=== PATIENT | male | born 1955 | race Hispanic/Latino ===

== ENCOUNTER 2022-05-27 12:44 | Emergency (ER) | payer OTHER ==
--- NOTE | 2022-05-27 13:28 | ER ---
Nurse's Notes [facility] Name: Cristi Reed Age: 66 yrs Sex: Male : 1955 Arrival Date: 05/27/2022 Time: 12:54 Bed 9 Private MD: Diagnosis: Encounter for removal of sutures Presentation: 05/27 13:14 Chief complaint: Received sutures to bridge of nose 05/18, here for removal. Coronavirus ss screen: At this time, the client does not indicate any symptoms associated with coronavirus-19. Ebola Screen: No symptoms or risks identified at this time. Risk Assessment: Do you want to hurt yourself or someone else? Patient reports no desire to harm self or others. Onset of symptoms was May 27, 2022. 13:14 Method Of Arrival: Ambulatory ss 13:14 Acuity: CHRIS 4 ss Historical: - Allergies: 13:15 No Known Allergies; ss - Immunization history:: Adult Immunizations. - Social history:: Smoking status: Patient denies any tobacco usage or history of. Screenin:36 Abuse screen: Denies threats or abuse. Denies injuries from another. Nutritional ss screening: No deficits noted. Tuberculosis screening: Never had TB. Fall Risk None identified. Assessment: 13:36 General: Appears in no apparent distress. comfortable, Behavior is calm, cooperative. ss Derm: Skin is pink, warm \T\ dry. normal. Vital Signs: 13:14 BP 127 / 99; Pulse 99; Resp 18; Temp 98.3; Pulse Ox 100% on R/A; Pain 0/10; ss ED Course: 12:54 Patient arrived in ED. am2 12:59 Sky Hopkins is PHCP. jl9 12:59 Desean Parra MD is Attending Physician. jl9 13:15 Triage completed. ss 13:28 Elysia Adam, RN is Primary Nurse. iw 13:36 Patient has correct armband on for positive identification. Bed in low position. ss 13:36 No provider procedures requiring assistance completed. Patient did not have IV access ss during this emergency room visit. Administered Medications: No medications were administered Medication: 13:36 VIS not applicable for this client. ss Outcome: 13:28 Discharge ordered by . jl9 13:36 Discharged to home ambulatory. ss 13:36 Condition: good 13:36 Discharge instructions given to patient, family, Instructed on discharge instructions, follow up and referral plans. Demonstrated understanding of instructions, follow-up care. 13:36 No charge visit due to suture removal. 13:37 Patient left the ED. Signatures: Elysia Adam RN RAS Aure Borrero RN RN ss Moreno, Amanda am2 Linares, John jl9
--- NOTE | 2022-05-27 13:29 | EDPHYS ---
Physician Documentation [facility] Name: Cristi Reed Age: 66 yrs Sex: Male : 1955 Arrival Date: 05/27/2022 Time: 12:54 Bed 9 Private MD: ED Physician Desean Parra HPI: 05/27 13:21 This 66 yrs old Male presents to ER via Ambulatory with complaints of Suture jl9 Removal. 13:21 The patient has sutures on the face. Sutures/deana progress: The patient has no jl9 c/o's. The wound is well-healing with no redness, swelling, discharge, or dehiscence reported. Historical: - Allergies: 13:15 No Known Allergies; ss - Immunization history:: Adult Immunizations. - Social history:: Smoking status: Patient denies any tobacco usage or history of. ROS: 13:27 Constitutional: Negative for fever, chills, and weight loss, Eyes: Negative for injury, jl9 pain, redness, and discharge, ENT: Negative for injury, pain, and discharge, Neck: Negative for injury, pain, and swelling, Cardiovascular: Negative for chest pain, palpitations, and edema, Respiratory: Negative for shortness of breath, cough, wheezing, and pleuritic chest pain, Abdomen/GI: Negative for abdominal pain, nausea, vomiting, diarrhea, and constipation, Back: Negative for injury and pain, : Negative for injury, bleeding, discharge, and swelling, MS/Extremity: Negative for injury and deformity. 13:27 Neuro: Negative for headache, weakness, numbness, tingling, and seizure, Psych: Negative for depression, anxiety, suicide ideation, homicidal ideation, and hallucinations, Allergy/Immunology: Negative for hives, rash, and allergies, Endocrine: Negative for neck swelling, polydipsia, polyuria, polyphagia, and marked weight changes, Hematologic/Lymphatic: Negative for swollen nodes, abnormal bleeding, and unusual bruising. 13:27 Skin: Positive for 5 sutures to nose. . Exam: 13:27 Constitutional: This is a well developed, well nourished patient who is awake, alert, jl9 and in no acute distress. Head/Face: Normocephalic, atraumatic. Eyes: Pupils equal round and reactive to light, extra-ocular motions intact. Lids and lashes normal. Conjunctiva and sclera are non-icteric and not injected. Cornea within normal limits. Periorbital areas with no swelling, redness, or edema. ENT: Mucous membranes moist. Neck: Trachea midline, no thyromegaly or masses palpated, and no cervical lymphadenopathy. Supple, full range of motion without nuchal rigidity, or vertebral point tenderness. No Meningismus. Chest/axilla: Normal chest wall appearance and motion. Nontender with no deformity. No lesions are appreciated. Cardiovascular: Regular rate and rhythm with a normal S1 and S2. No gallops, murmurs, or rubs. Normal PMI, no JVD. No pulse deficits. Respiratory: Lungs have equal breath sounds bilaterally, clear to auscultation and percussion. No rales, rhonchi or wheezes noted. No increased work of breathing, no retractions or nasal flaring. Abdomen/GI: Soft, non-tender, with normal bowel sounds. No distension or tympany. No guarding or rebound. No evidence of tenderness throughout. MS/ Extremity: Pulses equal, no cyanosis. Neurovascular intact. Full, normal range of motion. Neuro: Awake and alert, GCS 15, oriented to person, place, time, and situation. Cranial nerves II-XII grossly intact. Motor strength 5/5 in all extremities. Sensory grossly intact. Cerebellar exam normal. Normal gait. Psych: Awake, alert, with orientation to person, place and time. Behavior, mood, and affect are within normal limits. 13:27 Skin: Wound recheck: Suture laceration closure: the wound is healing well. Vital Signs: 13:14 BP 127 / 99; Pulse 99; Resp 18; Temp 98.3; Pulse Ox 100% on R/A; Pain 0/10; ss Procedures: 13:28 Suture/Staple removal: Removed 5 sutures, from face, site appears well healed, dressed jl9 with Neosporin, Patient tolerated well. MDM: 13:20 Patient medically screened. jl9 13:29 Data reviewed: vital signs, nurses notes. jl9 Administered Medications: No medications were administered Disposition Summary: 05/27/22 13:28 Discharge Ordered Location: Home [facility] Condition: Stable [facility] Diagnosis - Encounter for removal of sutures jl9 Followup: jl9 - With: Private Physician - When: 1 - 2 days - Reason: Recheck today's complaints, Continuance of care, Re-evaluation by your physician Discharge Instructions: - Discharge Summary Sheet jl9 - Suture Removal, Care After jl9 Forms: - Medication Reconciliation Form jl9 - Thank You Letter jl9 - Antibiotic Education jl9 - Prescription Opioid Use jl9 Signatures: Aure Borrero RN RN Sky Stapleton jl9
[2022-05-27 14:06] VITALS: BP 127/99; TEMP 98.3; O2SAT 100
== END 2022-05-27 13:37 | disposition home or self-care (01) ==
LOC: ER 12:44
DX: Z48.02 Encounter for removal of sutures (principal)